=== PATIENT | female | born 1950 | race Caucasian/White ===

== ENCOUNTER → 2019-04-08 | Outpatient (CLI) | payer MEDICARE ==
[~2019-04-08] MED LIST: CHOL400C11 PO; CYAN250013 PO; KRIL500C PO; MULT1TAB60 PO
== END | disposition home or self-care (01) ==
LOC: STAR 14:07
PROVIDERS: ATTEND Obstetrics & Gynecology Female Pelvic Medicine and Reconstructive Surgery
DX: Z01.818 Encounter for other preprocedural examination (principal); N81.10 Cystocele, unspecified
CPT/HCPCS: 93005

== ENCOUNTER 2019-04-25 05:40 | Day surgery (SDC) | payer MEDICARE ==
[~2019-04-25] VITALS: Ht 162.6 cm; Wt 48.7 kg
[2019-04-25] MEDS ORDERED: FENTANYL PF 250 MCG/5ML ONE ×2 (06:37→08:05)
[2019-04-25] MEDS ORDERED: PHENYLEPHRINE 10 MG/ML ONE (06:38)
[2019-04-25] MEDS ORDERED: CEFOTETAN PMX 2GM/50ML 50 ML ONE (06:40)
[2019-04-25] MEDS ORDERED: KETOROLAC 30 MG/1 ML ONE (06:41)
[2019-04-25] MEDS ORDERED: GABAPENTIN 300 MG CAPSULE PO STA (06:44)
[2019-04-25] MEDS ORDERED: ACETAMINOPHEN 500 MG TABLET PO STA (06:44)
[2019-04-25] MEDS ORDERED: PROPOFOL 10 MG/ML, 20ML ONE (06:45)
[2019-04-25] MEDS ORDERED: ONDANSETRON 2MG/ML, 2ML ONE (06:45)
[2019-04-25] MEDS ORDERED: NEOSTIGMINE 1 MG/ML, 10ML ONE (06:45)
[2019-04-25] MEDS ORDERED: GLYCOPYRROLATE 0.2MG/1ML, 5ML ONE (06:45)
[2019-04-25] MEDS ORDERED: DEXAMETHASONE 4 MG/ML, 1ML ONE (06:45)
[2019-04-25] MEDS ORDERED: LACTATED RINGERS 1,000 ML IV SCH ×2 (06:45→09:42)
[2019-04-25] MEDS ORDERED: ROCURONIUM 10MG/ML,5ML ONE (06:45)
[2019-04-25] MEDS ORDERED: INDIGO CARMINE 0.8%, 5ML ONE (06:47)
[2019-04-25] MEDS ORDERED: BUPIVACAINE/PF-EPI 0.25% 1:200K ONE (06:47)
[2019-04-25] MEDS ORDERED: NEOMY/POLYMYXIN B GU IRR. 1 ML ONE (06:47)
[2019-04-25] MEDS ORDERED: BUPIVACAINE/PF 0.5% ONE (06:48)
[2019-04-25] MEDS ORDERED: THROMBIN 5,000 UNIT VIAL TP ONE (06:48)
[2019-04-25] MEDS ORDERED: EPINEPHRINE 1 MG/ML, 1ML ONE (06:48)
[2019-04-25] MEDS ORDERED: hydrALAzine 20 MG/ML, 1ML IV PRN (07:00)
[2019-04-25] MEDS ORDERED: HYDROmorphone 2 MG/ML, 1ML IVPush PRN (07:00)
[2019-04-25] MEDS ORDERED: LABETALOL 5MG/ML, 20ML IV PRN (07:00)
[2019-04-25] MEDS ORDERED: MEPERIDINE/PF 25MG/ML,1ML IVPush PRN (07:00)
[2019-04-25] MEDS ORDERED: HALOPERIDOL 5 MG/ML IV PRN (07:00)
[2019-04-25] MEDS ORDERED: FENTANYL PF 100 MCG/2ML IV PRN (07:00)
[2019-04-25] MEDS ORDERED: OXYcodone 5 MG/5 ML ORAL.SOL UDC PO PRN (07:00)
[2019-04-25] MEDS ORDERED: MORPHINE SULFATE 4 MG/ML, 1ML IVPush PRN (07:00)
[2019-04-25] MEDS ORDERED: PROMETHAZINE 25 MG/ML, 1ML IV PRN (07:00)
[2019-04-25] MEDS ORDERED: MIDAZOLAM 1 MG/ML, 2ML ONE (07:29)
[2019-04-25] MEDS ORDERED: METOPROLOL 1 MG/ML, 5ML ONE (08:47)
[2019-04-25] MEDS ORDERED: FUROSEMIDE 20 MG/2 ML ONE (09:31)
[2019-04-25] MEDS ORDERED: ONDANSETRON 2MG/ML, 2ML IVPush PRN (10:00)
[2019-04-25] MEDS ORDERED: IBUPROFEN 600 MG TABLET PO PRN (10:00)
[2019-04-25] MEDS ORDERED: PROMETHAZINE 12.5 MG SUPP PR ONE (10:00)
[2019-04-25] MEDS ORDERED: HYDROcodone/APAP 5/325 TABLET PO PRN (10:00)
[2019-04-25] MEDS ORDERED: FENTANYL PF 100 MCG/2ML ONE (10:40)
[2019-04-25] MEDS ORDERED: OXYcodone 5 MG/5 ML ORAL.SOL UDC ONE (10:40)
== END 2019-04-25 15:25 | disposition home or self-care (01) ==
LOC: OUT 05:40
PROVIDERS: ATTEND Obstetrics & Gynecology Female Pelvic Medicine and Reconstructive Surgery
DX: N81.4 Uterovaginal prolapse, unspecified (principal); D25.1 Intramural leiomyoma of uterus; Z98.890 Other specified postprocedural states; Z72.89 Other problems related to lifestyle; Z87.39 Personal history of other diseases of the musculoskeletal system and connective tissue
CPT/HCPCS: 57260; 58542; 88307; C1781; J1100; J1885; J1940; J2250; J2370; J2405; J2704; J2710; J3010; J3490; J7120; J0171